=== PATIENT | male | born 1960 | race African-American/Black ===

== ENCOUNTER 2020-08-06 20:41 | Emergency (ER) | payer MEDICAID, OTHER ==
[~2020-08-06] VITALS: Ht 180.3 cm; Wt 99.8 kg
[~2020-08-06 20:41] MED LIST: NORCO 10/3251 EA ORAL; NORCO 5-325 TA1 EACH ORAL; UNKNOWN BP MED
[2020-08-06 20:45] VITALS: BP 220/110
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
[2020-08-06] MEDS ORDERED: CATAPRES0.1 MG ORAL (21:01)
[2020-08-06] MEDS ORDERED: HYDRALAZINE HCL50 MG ORAL (21:01)
[2020-08-06] MEDS ORDERED: BENAZEPRIL HCL40 MG ORAL (21:01)
[2020-08-06 21:09] LABS: BASOPHILS % (AUTO) 1.4 % (0.0-2.0); EOSINOPHILS % (AUTO) 1.6 % (0.0-3.0); HEMATOCRIT 32.7 % (42.0-52.0); HEMOGLOBIN 10.9 G/DL (14.2-18.0); LYMPHOCYTES % (AUTO) 24.9 % (20.0-45.0); MEAN CORPUSCULAR VOLUME 87 FL (80-99); MONOCYTES % (AUTO) 8.8 % (1.0-10.0); NEUTROPHILS % (AUTO) 63.3 % (45.0-75.0); PLATELET COUNT 276 K/UL (150-450); RED BLOOD COUNT 3.77 M/UL (4.70-6.10); WHITE BLOOD COUNT 5.7 K/UL (4.8-10.8)
[2020-08-06] MEDS ORDERED: HydrALAZINE 50mg tab ORAL ONE (21:30)
[2020-08-06 21:34] LABS: ANION GAP 10 mmol/L (5-15); BLOOD UREA NITROGEN 38 mg/dL (7-18); CALCIUM 8.7 MG/DL (8.5-10.1); CARBON DIOXIDE 24 MMOL/L (21-32); CHLORIDE 105 MMOL/L (98-107); CREATININE 4.2 MG/DL (0.55-1.30); POTASSIUM 3.9 MMOL/L (3.5-5.1); SODIUM 139 MMOL/L (136-145)
[2020-08-06 21:38] LABS: ALANINE AMINOTRANSFERASE 27 U/L (12-78); ALBUMIN 2.9 G/DL (3.4-5.0); ALBUMIN/GLOBULIN RATIO 0.7 (1.0-2.7); ALKALINE PHOSPHATASE 96 U/L (46-116); ASPARTATE AMINO TRANSFERASE 22 U/L (15-37); BILIRUBIN,TOTAL 0.3 MG/DL (0.2-1.0); CREATINE KINASE 158 U/L (26-308)
--- NOTE | 2020-08-06 22:15 | Emergency Room Report ---
History of Present Illness General Chief Complaint: Chest Pain Source: Patient Present Illness HPI This patient states that about 2 hours prior to arrival he developed sudden onset left-sided chest pain. He states he does have a history of congestive heart failure and AZ. He denies recent illness. He denies cough or congestion. Denies fever or chills. 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 He admits that he did not take any of his medications today. He is currently pain free. He has no other complaints. Allergies: Coded Allergies: NIFEDIPINE (Unverified Allergy, Unknown, 07/29/14) COVID-19 Screening Contact w/high risk pt: No Experienced COVID-19 symptoms?: No COVID-19 Testing performed HUMAN RESOURCES HR GENERALIST: No Patient History Past Medical History: see triage record, DM, HTN, AZ, CAD, CHF, renal disease Social History: Denies: smoking, alcohol use, drug use Reviewed Nursing Documentation: PMH: Agreed; PSxH: Agreed Nursing Documentation-PMH Hx Cardiac Problems: Yes - CHF Hx Hypertension: Yes Hx Cerebrovascular Accident: Yes Review of Systems All Other Systems: negative except mentioned in HPI Physical Exam Vital Signs Date Time Temp Pulse Resp B/P (MAP) Pulse Ox O2 Delivery O2 Flow Rate FiO2 08/06/20 20:38 96.8 106 22 220/110 (146) 96 Room Air Sp02 EP Interpretation: reviewed, normal General Appearance: no apparent distress, alert, GCS 15, non-toxic Head: normocephalic, atraumatic Eyes: bilateral eye normal inspection, bilateral eye PERRL ENT: hearing grossly normal, normal pharynx, no angioedema, normal voice Neck: full range of motion, supple/symm/no masses Respiratory: chest non-tender, lungs clear, normal breath sounds, no respiratory distress, no retraction, no accessory muscle use, speaking full sentences Cardiovascular #1: regular rate, rhythm, no edema Gastrointestinal: normal inspection, non tender, soft, non-distended, no guarding, no rebound Rectal: deferred Musculoskeletal: back normal, normal range of motion, gait/station normal, non- tender Neurologic: alert, motor strength/tone normal, oriented x3, sensory intact, responsive, speech normal Psychiatric: judgement/insight normal, memory normal, mood/affect normal, no suicidal/homicidal ideation Medical Decision Making Diagnostic Impression: Primary Impression: NSTEMI (non-ST elevated myocardial infarction) Additional Impressions: Hypertensive urgency Renal failure Elevated troponin ER Course This patient was found to have an elevated troponin. He also presented with a systolic pressure over 200. He meets criteria for malignant hypertension. The patient has a history of renal failure so this does complicate his elevated troponin. However, the patient's EKG has findings in the lateral leads that could be concerning for ischemia. However, I do not have an EKG to compare. Patient does have a known history of AZ and CHF. He was given aspirin. He remained without chest pain in the emergency department. I also gave the patient his home high blood pressure regimen which included hydralazine, benazepril and clonidine. In the patient's chest pain, elevated troponin and EKG findings, I felt that this patient should be transferred for higher level care for concern of ACS. This patient may need to undergo heart catheterization and further evaluation by interventional cardiology. Therefore he was transferred for higher level of care. This patient is critically ill. This patient required complex medical decision- making, aggressive intervention, extensive laboratory workup and monitoring. Critical care time: 40 minutes. This patient was evaluated in the context of the global COVID-19 pandemic, which necessitated consideration that the patient might be at risk for infection with the [id number] virus that causes COVID-19. Institutional protocols and algorithms that pertain to the evaluation of patients at risk for COVID-19 and the state of rapid change based on information released by multiple regulatory bodies including the CDC and federal and state organizations. These policies and algorithms were followed during the patient's care in the ED. Laboratory Tests Test 08/06/20 21:00 08/07/20 00:06 White Blood Count 5.7 K/UL (4.8-10.8) Red Blood Count 3.77 M/UL (4.70-6.10) L Hemoglobin 10.9 G/DL (14.2-18.0) L Hematocrit 32.7 % (42.0-52.0) L Mean Corpuscular Volume 87 FL (80-99) Mean Corpuscular Hemoglobin 29.0 PG (27.0-31.0) Mean Corpuscular Hemoglobin Concent 33.5 G/DL (32.0-36.0) Red Cell Distribution Width 15.0 % (11.6-14.8) H Platelet Count 276 K/UL (150-450) Mean Platelet Volume 8.7 FL (6.5-10.1) Neutrophils (%) (Auto) 63.3 % (45.0-75.0) Lymphocytes (%) (Auto) 24.9 % (20.0-45.0) Monocytes (%) (Auto) 8.8 % (1.0-10.0) Eosinophils (%) (Auto) 1.6 % (0.0-3.0) Basophils (%) (Auto) 1.4 % (0.0-2.0) Sodium Level 139 MMOL/L (136-145) Potassium Level 3.9 MMOL/L (3.5-5.1) Chloride Level 105 MMOL/L (98-107) Carbon Dioxide Level 24 MMOL/L (21-32) Anion Gap 10 mmol/L (5-15) Blood Urea Nitrogen 38 mg/dL (7-18) H Creatinine 4.2 MG/DL (0.55-1.30) H Estimated Glomerular Filtration Rate 17.6 mL/min (>60) Glucose Level 160 MG/DL (74-106) H Calcium Level 8.7 MG/DL (8.5-10.1) Total Bilirubin 0.3 MG/DL (0.2-1.0) Aspartate Amino Transferase (AST) 22 U/L (15-37) Alanine Aminotransferase (ALT) 27 U/L (12-78) Alkaline Phosphatase 96 U/L (46-116) Total Creatine Kinase 158 U/L (26-308) Troponin I 0.133 ng/mL (0.000-0.056) 0.148 ng/mL (0.000-0.056) Total Protein 6.9 G/DL (6.4-8.2) Albumin 2.9 G/DL (3.4-5.0) L Globulin 4.0 g/dL Albumin/Globulin Ratio 0.7 (1.0-2.7) L Lipase 737 U/L (73-393) H Microbiology Date/Time Source Procedure Growth Status 08/06/20 23:10 Nasopharynx SARS-CoV-2 RdRp Gene Assay - Final Complete Laboratory Tests Test 08/06/20 21:00 White Blood Count 5.7 K/UL (4.8-10.8) Red Blood Count 3.77 M/UL (4.70-6.10) L Hemoglobin 10.9 G/DL (14.2-18.0) L Hematocrit 32.7 % (42.0-52.0) L Mean Corpuscular Volume 87 FL (80-99) Mean Corpuscular Hemoglobin 29.0 PG (27.0-31.0) Mean Corpuscular Hemoglobin Concent 33.5 G/DL (32.0-36.0) Red Cell Distribution Width 15.0 % (11.6-14.8) H Platelet Count 276 K/UL (150-450) Mean Platelet Volume 8.7 FL (6.5-10.1) Neutrophils (%) (Auto) 63.3 % (45.0-75.0) Lymphocytes (%) (Auto) 24.9 % (20.0-45.0) Monocytes (%) (Auto) 8.8 % (1.0-10.0) Eosinophils (%) (Auto) 1.6 % (0.0-3.0) Basophils (%) (Auto) 1.4 % (0.0-2.0) Sodium Level 139 MMOL/L (136-145) Potassium Level 3.9 MMOL/L (3.5-5.1) Chloride Level 105 MMOL/L (98-107) Carbon Dioxide Level 24 MMOL/L (21-32) Anion Gap 10 mmol/L (5-15) Blood Urea Nitrogen 38 mg/dL (7-18) H Creatinine 4.2 MG/DL (0.55-1.30) H Estimated Glomerular Filtration Rate 17.6 mL/min (>60) Glucose Level 160 MG/DL (74-106) H Calcium Level 8.7 MG/DL (8.5-10.1) Total Bilirubin 0.3 MG/DL (0.2-1.0) Aspartate Amino Transferase (AST) 22 U/L (15-37) Alanine Aminotransferase (ALT) 27 U/L (12-78) Alkaline Phosphatase 96 U/L (46-116) Total Creatine Kinase 158 U/L (26-308) Troponin I 0.133 ng/mL (0.000-0.056) Total Protein 6.9 G/DL (6.4-8.2) Albumin 2.9 G/DL (3.4-5.0) L Globulin 4.0 g/dL Albumin/Globulin Ratio 0.7 (1.0-2.7) L Lipase 737 U/L (73-393) H EKG Diagnostic Results Rate: tachycardiac - S.tachycardia Rhythm: other - S.tachycardia Other Impression NSST findings in leads V5, V6, I, aVL, Qwaves in V1, V2. No comparison EKG available. Rhythm Strip Diag. Results EP Interpretation: yes Rate: 90's Rhythm: NSR, no PVC's, no ectopy Chest X-Ray Diagnostic Results Chest X-Ray Diagnostic Results : Chest X-Ray Ordered: Yes # of Views/Limited/Complete: 1 View Indication: Chest Pain EP Interpretation: Yes Interpretation: other - Diffuse patchy opacities. Impression: Other - Pulmonary congestion with diffuse patchy opacities concerning for mild CHF. Electronically Signed by: Luiza Kramer DO Last Vital Signs Date Time Temp Pulse Resp B/P (MAP) Pulse Ox O2 Delivery O2 Flow Rate FiO2 08/06/20 21:38 179/110 08/06/20 20:45 106 22 Room Air 08/06/20 20:45 96.8 96 Status: improved Disposition: SHORT-TERM HOSP Condition: Serious Referrals: [facility],REFERRING (PCP) Luiza Kramer DO Aug 06, 2020 22:15
[2020-08-06 23:00] VITALS: BP 126/74
--- NOTE | 2020-08-06 23:00 | NUR ---
ED Nurse Note: Pt resting in bed with eyes closed, non-labored breathing, no signs of distress. VSS. willv continue to monitor
--- NOTE | 2020-08-07 00:57 | NUR ---
ER DISCHARGE NOTE: Patient is cleared to be discharged per ERMD and transfered to [facility] via private ambulance, pt is aox4, on room air, with stable vital signs. pt took all belongings Addendum: 08/07/20 at 0105 by BARNEY report given to HELEN Evangelista
[2020-08-07 01:00] VITALS: BP 132/78
--- NOTE | 2020-08-07 12:43 | Diagnostic Imaging Report ---
Indication: Reason For Exam: CP Technique: Single AP view of the chest. Comparison: None. Findings: The heart is enlarged when accounting for projection and technique. There is pulmonary vascular congestion. There is a small moderate left and small right pleural effusion with associated streaky bibasilar airspace opacities. No pneumothorax. No acute osseous abnormality. IMPRESSION: 1. Small to moderate left and small right pleural effusions. 2. Pulmonary vascular congestion with streaky bibasilar airspace opacities which could represent combination of pleural fluid or edema and atelectasis but pneumonia should be excluded clinically. 3. Cardiomegaly.
== END 2020-08-07 01:00 | disposition short-term general hospital (02) ==
LOC: EDBD 20:41 → EMR 21:24
DX: I21.4 Non-ST elevation (NSTEMI) myocardial infarction (principal); I16.1 Hypertensive emergency; I12.9 Hypertensive chronic kidney disease with stage 1 through stage 4 chronic kidney disease, or unspecified chronic kidney disease; N18.9 Chronic kidney disease, unspecified; R77.8 Other specified abnormalities of plasma proteins; I25.10 Atherosclerotic heart disease of native coronary artery without angina pectoris; E78.5 Hyperlipidemia, unspecified; I25.2 Old myocardial infarction; Z86.73 Personal history of transient ischemic attack (TIA), and cerebral infarction without residual deficits; Z88.8 Allergy status to other drugs, medicaments and biological substances; Z79.818 Long term (current) use of other agents affecting estrogen receptors and estrogen levels
CPT/HCPCS: 36415; 71045; 80053; 82550; 83690; 84484; 85025; 93005; U0002; Z7502; 99291